=== PATIENT | male | born 1995 | race African-American/Black ===

== ENCOUNTER 2023-08-03 20:39 | Emergency (ER) | payer OTHER ==
[~2023-08-03] VITALS: Ht 172.7 cm; Wt 115.0 kg
[2023-08-03 20:47] VITALS: BP 127/82; PULSE 95; RESP 14; TEMP 98.4; O2SAT 100
[2023-08-03 22:48] LABS: BASOPHILS % 0.7 % (0.0-2.0); EOSINOPHILS % 1.6 % (0.0-5.0); HEMATOCRIT. 42.4 % (42.0-52.0); HEMOGLOBIN. 14.2 g/dL (14.0-18.0); LYMPHOCYTES % 29.5 % (20.0-50.0); MEAN CORPUSCULAR HEMOGLOBIN 27.5 pg (28.0-32.0); MEAN CORPUSCULAR HGB CONC 33.4 g/dL (31.0-37.0); MEAN CORPUSCULAR VOLUME 82.3 fL (80.0-94.0); MEAN PLATELET VOLUME 8.1 fl (7.4-10.4); MONOCYTES % 5.2 % (2.0-8.0); PLATELET 323 x1000/uL (130-400); RED BLOOD CELL COUNT 5.15 mill/uL (4.7-6.1); WHITE BLOOD COUNT 10.7 x1000/uL (4.5-11.0)
[2023-08-03 22:58] LABS: CHLORIDE 104 mEq/L (98-107); POTASSIUM 3.6 mEq/L (3.5-5.1); SODIUM 134 mEq/L (136-145)
[2023-08-03 23:00] LABS: CALCIUM 10.5 mg/dL (8.7-10.4); CARBON DIOXIDE 24 mEq/L (21-32)
[2023-08-03 23:05] LABS: CREATININE 1.2 mg/dL (0.6-1.3); GLUCOSE 102 mg/dL (70-105); UREA NITROGEN BLOOD 8 mg/dL (9-23)
[2023-08-03 23:07] LABS: ALANINE AMINOTRANSFERASE 46 IU/L (10-49); ALBUMIN 4.7 g/dL (3.2-4.8); ASPARTATE AMINOTRANSFERASE 24 IU/L (<34); BILIRUBIN TOTAL 0.8 mg/dL (0.1-1.0); PROTEIN TOTAL 8.1 g/dL (6.0-8.3)
[2023-08-03 23:18] LABS: ETHANOL BLOOD < 10 mg/dL (<10)
== END 2023-08-04 00:07 | disposition left against medical advice (07) ==
LOC: ER 20:39
DX: R10.32 Left lower quadrant pain (principal); Z53.21 Procedure and treatment not carried out due to patient leaving prior to being seen by health care provider
CPT/HCPCS: 36415; 80053; 80320; 85025; G0480